=== PATIENT | female | born 1955 | race Two or more races ===

== ENCOUNTER → 2016-05-12 | Outpatient (CLI) | payer BC | LOC: MW.CHIM 07:55 | PROVIDERS: ATTEND Internal Medicine | DX: E11.9 Type 2 diabetes mellitus without complications (principal) | CPT/HCPCS: 36415; 83036 ==

== ENCOUNTER → 2016-07-01 | Outpatient (CLI) | payer BC | LOC: MW.CHIM 08:20 | PROVIDERS: ATTEND Internal Medicine | DX: E11.9 Type 2 diabetes mellitus without complications (principal) | CPT/HCPCS: 36415; 83036 ==